=== PATIENT | male | born 1965 | race Caucasian/White ===

== ENCOUNTER 2021-06-11 13:39 | Emergency (ER) | payer OTHER, SELFPAY ==
[2021-06-11 14:06] VITALS: BP 142/87; PULSE 83; RESP 14; TEMP 37.1; O2SAT 99; BMI 25.7
--- NOTE | 2021-06-11 14:27 | DI.RAD.S_ITS ---
PROCEDURE: XR HAND RT MIN 3V INDICATIONS: cellulitis eval for FB TECHNIQUE: 3 views of the hand(s) acquired. COMPARISON: None. FINDINGS: Bones: No acute, displaced fracture. 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 Carpal bones are normally aligned. No suspicious bony lesions. Soft tissues: Diffuse soft tissue swelling without evidence of a radiopaque foreign body. IMPRESSION: 1. No radiopaque foreign body appreciated. Dictated by: Fabio Contreras M.D. on 06/11/2021 at 14:44 Approved by: Fabio Contreras M.D. on 06/11/2021 at 14:46
[2021-06-11 15:36] LABS: Add Manual Diff / Slide Review NO; Basophils Absolute Auto 0 /uL (0-100); Basophils Percent Auto 0.5 % (0-2); Eosinophils Absolute Auto 200 /uL (0-450); Eosinophils Percent Auto 1.7 % (2-4); Hematocrit 44.4 % (41-53); Hemoglobin 15.4 g/dL (13.5-17.5); Lymphocytes Absolute Auto 1700 /uL (1100-4500); Lymphocytes Percent Auto 18.6 % (25-40); Mean Corpuscular HGB Conc 34.7 % (30-36); Mean Corpuscular Hemoglobin 31.7 PG (26-34); Mean Corpuscular Volume 91.1 fL (80-100); Monocytes Absolute Auto 800 /uL (0-900); Monocytes Percent Auto 8.4 % (3-14); Neutrophils Absolute Auto 6600 /uL (1500-7000); Neutrophils Percent Auto 70.8 % (50-75); Platelet Count 263 X10^3/uL (150-400); Red Blood Cell Count 4.88 X10^6/uL (4.5-5.9); Red Cell Distribution Width 13.5 % (11.6-14.8); White Blood Cell Count 9.3 X10^3/uL (4.5-11.0)
--- NOTE | 2021-06-11 15:36 | ED_ITS ---
HPI - Extremity Injury (Upper) <Patricio Evans PA-C - Last Filed: 06/11/21 19:29> General Chief Complaint: Extremity Injury, Upper Stated Complaint: cut finger rt hand Time Seen by Provider: 06/11/21 14:27 Source: patient Mode of arrival: Ambulatory Limitations: no limitations History of Present Illness HPI narrative: Patient is a 55-year-old male presenting to the emergency department today for evaluation the right finger injury. Patient states that he hit his knuckle on a cement wall while putting away his bike in his garage on 06/08/2021. He states that he continue to working that evening and began working on his edge grinder with metal. He states that the next morning he noticed significant redness and swelling to his right hand, and he notes that the swelling seemed to reduce yesterday. However, he states that the swelling has returned today but he denies worsening pain. Patient denies fever, chills, chest pain, shortness of breath, cough, nausea, vomiting, diarrhea, numbness or tingling in the bilateral upper extremities. No other concerns voiced at this time. Related Data Previous Rx's Medication Instructions Recorded sulfamethoxazole 800 1 tab PO BID #14 tab 06/11/21 mg-trimethoprim 160 mg tablet (Bactrim DS) Allergies Allergy/AdvReac Type Severity Reaction Status Date / Time No Known Drug Allergies Allergy Verified 06/11/21 14:06 Review of Systems <Patricio Evans PA-C - Last Filed: 06/11/21 19:29> Constitutional Constitutional: Denies chills, Denies fatigue, Denies fever(s), Denies frequent falls, Denies lethargy and Denies weakness Eyes Eyes: Denies loss of vision ENT Ears, Nose, Mouth, and Throat: Denies change in voice, Denies dizziness, Denies neck pain, Denies sore throat and Denies throat swelling Cardiovascular Cardiovascular: Denies chest pain, Denies irregular heart rhythm, Denies lightheadedness, Denies palpitations, Denies dyspnea, Denies dyspnea on exertion and Denies orthopnea Respiratory Respiratory: Denies cough, Denies dyspnea, Denies dyspnea on exertion and Denies wheezing Gastrointestinal Gastrointestinal: Denies abdominal pain, Denies change in bowel habits, Denies diarrhea, Denies nausea and Denies vomiting Musculoskeletal Musculoskeletal: Denies back pain, Denies muscle weakness, Denies neck pain, Denies numbness and Denies tingling Integumentary/Breasts Skin/Breast: Denies pruritus, Reports erythema, Denies rash, Reports skin swelling and Reports wounds (Abrasion right 4th digit) Neurologic Neurologic: Denies behavioral changes, Denies confusion, Denies dizziness, Denies frequent falls, Denies loss of vision, Denies numbness, Denies tingling and Denies weakness Psychiatric Psychiatric: Denies behavioral changes and Denies confusion Endocrine Endocrine: Denies fatigue and Denies palpitations Allergic/Immunologic Allergic/Immunologic: Denies throat swelling and Denies wheezing Patient History <Patricio Evans PA-C - Last Filed: 06/11/21 19:29> Social History Smoking Status: Current every day smoker Smoking Status: Current every day smoker tobacco type: cigarettes alcohol intake frequency: 0-2 drinks per day Substance Use Type: does not use Exam <Patricio Evans PA-C - Last Filed: 06/11/21 19:29> Narrative Exam Narrative: GENERAL: 55 year old patient appears stated age. Well-developed patient, in no acute distress. HEAD: Atraumatic. Normocephalic. EYES: Pupils equal round and reactive. Extraocular motions intact. No scleral icterus. No injection or drainage. ENT: Nose without bleeding, purulent drainage. Throat without erythema, tonsillar hypertrophy or exudate. Airway patent. NECK: Trachea midline. Non tender CARDIOVASCULAR: Regular rate and rhythm without murmurs, gallops, or rubs. RESPIRATORY: Clear to auscultation. Breath sounds equal bilaterally. No wheezes, rales, or rhonchi. GASTROINTESTINAL: Abdomen soft, non-tender, nondistended. EXTREMITIES: No edema or joint tenderness. BACK: Nontender without deformity or crepitance. No flank tenderness. NEURO: AOx3. SKIN: No rash of visible areas. Swelling and erythema appreciated over the dorsal aspect of the right hand. Abrasion appreciated over the dorsal aspect of the right 4th digit proximal to the PIP joint.. Went and bloody drainage expressed when pressure applied over the abrasion. Initial Vital Signs Initial Vital Signs: Vital Signs Temperature 98.7 F 06/11/21 14:06 Pulse Rate 83 06/11/21 14:06 Respiratory Rate 14 06/11/21 14:06 Blood Pressure 142/87 H 06/11/21 14:06 Pulse Oximetry 99 06/11/21 14:06 <Flex Perry DO - Last Filed: 06/12/21 07:15> Initial Vital Signs Initial Vital Signs: Vital Signs Temperature 98.7 F 06/11/21 14:06 Pulse Rate 83 06/11/21 14:06 Respiratory Rate 14 06/11/21 14:06 Blood Pressure 142/87 H 06/11/21 14:06 Pulse Oximetry 99 06/11/21 14:06 Course <Patricio Evans PA-C - Last Filed: 06/11/21 19:29> Course Course Narrative: CBC, wound culture, blood culture, right hand x-ray obtained. Orders Ordered: Discontinued Medications Trimethoprim/Sulfamethoxazole (Trimeth/Sulfa 160/800 (Ds) Tablet) 1 tab PO NOW ONE Stop: 06/11/21 15:50 Last Admin: 06/11/21 16:11 Dose: 1 tab Documented by: GABRIELA Vital Signs Vital signs: Vital Signs - 8 hr 06/11/21 14:06 06/11/21 16:17 Temperature 98.7 F Pulse Rate 83 80 Respiratory Rate 14 16 Blood Pressure 142/87 H 138/78 Pulse Oximetry 99 97 <Flex Perry DO - Last Filed: 06/12/21 07:15> Orders Ordered: Discontinued Medications Trimethoprim/Sulfamethoxazole (Trimeth/Sulfa 160/800 (Ds) Tablet) 1 tab PO NOW ONE Stop: 06/11/21 15:50 Last Admin: 06/11/21 16:11 Dose: 1 tab Documented by: GABRIELA Vital Signs Vital signs: Vital Signs - 8 hr 06/11/21 14:06 06/11/21 16:17 Temperature 98.7 F Pulse Rate 83 80 Respiratory Rate 14 16 Blood Pressure 142/87 H 138/78 Pulse Oximetry 99 97 MDM - Extremity Injury (Upper) <Patricio Evans PA-C - Last Filed: 06/11/21 19:29> Lab Data Result diagrams: 06/11/21 14:20 Labs: Lab Results 06/11/21 Range/Units 14:20 WBC 9.3 (4.5-11.0) X10^3/uL RBC 4.88 (4.5-5.9) X10^6/uL Hgb 15.4 (13.5-17.5) g/dL Hct 44.4 (41-53) % MCV 91.1 (80-100) fL MCH 31.7 (26-34) PG MCHC 34.7 (30-36) % RDW 13.5 (11.6-14.8) % Plt Count 263 (150-400) X10^3/uL Neut % (Auto) 70.8 (50-75) % Lymph % (Auto) 18.6 L (25-40) % [place] % (Auto) 8.4 (3-14) % Eos % (Auto) 1.7 L (2-4) % Baso % (Auto) 0.5 (0-2) % Neut # (Auto) 6600 (9793-9695) /uL Lymph # (Auto) 1700 (6215-3208) /uL [place]ill # (Auto) 800 (0-900) /uL Eos # (Auto) 200 (0-450) /uL Baso # (Auto) 0 (0-100) /uL Imaging Data Extremity x-ray #1: Radiologist's Impression: PROCEDURE:? XR HAND RT MIN 3V ? INDICATIONS:? cellulitis eval for FB ? TECHNIQUE:? 3 views of the hand(s) acquired.? ? COMPARISON:? None. ? FINDINGS:? ? Bones:? No acute, displaced fracture.? 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 Carpal bones are normally aligned.? No suspicious bony lesions.? ? Soft tissues:? Diffuse soft tissue swelling without evidence of a radiopaque foreign body.? ? ? IMPRESSION:? 1. No radiopaque foreign body appreciated. ? ? Dictated by: Fabio Contreras M.D. on 06/11/2021 at 14:44 ? ? Approved by: Fabio Contreras M.D. on 06/11/2021 at 14:46 ? MDM Narrative Medical decision making narrative: Patient is a 55-year-old male presenting to the emergency department today for evaluation the right finger injury. To consider superficial skin abrasion versus wound infection versus MRSA. Overall physical examination, history, and vital signs are reassuring. At this time patient states that he feels comfortable being discharged home with oral antibiotics, stressed the importance of returning to the emergency department if his symptoms worsen. Strict return precautions discussed with patient prior to discharge. <Flex Perry, - Last Filed: 06/12/21 07:15> Lab Data Labs: Lab Results 06/11/21 Range/Units 14:20 WBC 9.3 (4.5-11.0) X10^3/uL RBC 4.88 (4.5-5.9) X10^6/uL Hgb 15.4 (13.5-17.5) g/dL Hct 44.4 (41-53) % MCV 91.1 (80-100) fL MCH 31.7 (26-34) PG MCHC 34.7 (30-36) % RDW 13.5 (11.6-14.8) % Plt Count 263 (150-400) X10^3/uL Neut % (Auto) 70.8 (50-75) % Lymph % (Auto) 18.6 L (25-40) % [place] % (Auto) 8.4 (3-14) % Eos % (Auto) 1.7 L (2-4) % Baso % (Auto) 0.5 (0-2) % Neut # (Auto) 6600 (6359-9973) /uL Lymph # (Auto) 1700 (6889-5103) /uL [place] # (Auto) 800 (0-900) /uL Eos # (Auto) 200 (0-450) /uL Baso # (Auto) 0 (0-100) /uL Discharge Plan Departure Patient Disposition: Home Clinical Impression: Infected wound Instructions: DI for Wound Infection Activity Restrictions/Additional Instructions: *You have been diagnosed with wound infection *What to do: *Please continue to take your regular medications as directed. [X] New medication prescriptions sent to your pharmacy: [facility] - Bactrim DS [ ] New medication written as a paper prescription [ ] No new medications given *Please follow up with your primary care provider in 2-3 days, call for an appointment. Let them know you were seen in the Emergency Department and that we ask that you be seen in follow up. We will electronically transmit a record of today's note if your PCP is in our system. *If you do not have a primary care provider please contact the [facility] Resource line at [phone]. They will ask some questions about your medical history and help get you set up with a doctor in the community. *Return to Emergency Department if you should have any new, worsening or concerning symptoms, such as fever greater than 101 F, shaking chills, worsening pain, worsening discharge, persistent vomiting or other bothersome symptoms. Prescriptions: New sulfamethoxazole-trimethoprim [Bactrim DS] 800-160 mg tablet 1 tab PO BID Qty: 14 0RF <Flex Perry, DO - Last Filed: 06/12/21 07:15> Cosign ED Attending Cosignature Attestation: Dr Perry Co-Sign Statement: I was available for consultation during this patient's emergency department visit. This chart is signed by myself for administrative purposes only. I did not have direct contact with this patient during this visit. They were seen independently by the APC.
[2021-06-11] MEDS: TRIMETH/SULFA 160/800 (DS) TABLET 1 TAB PO (16:11)
[2021-06-11 16:17] VITALS: BP 138/78; PULSE 80; RESP 16; O2SAT 97
--- NOTE | 2021-06-13 10:04 | PC.NURSE ---
positive MRSA, wound culture, 06/11/21
== END 2021-06-11 16:17 | disposition home or self-care (01) ==
PROVIDERS: Emergency Provider Physician Assistant
DX: S60.414A Abrasion of right ring finger, initial encounter (principal); L08.89 Other specified local infections of the skin and subcutaneous tissue; W22.01XA Walked into wall, initial encounter
CPT/HCPCS: 36415; 73130; 85025; 87040; 87070; 87075; 87185; 87186; 87205; 99283